=== PATIENT | male | born 1990 | race Caucasian/White ===

== ENCOUNTER → 2017-10-20 | Outpatient (CLI) | payer OTHER, SELFPAY ==
[~2017-10-20] MED LIST: ALBU90OI61 INH; CYCL10 PO; DESV50 PO; HYDACE5 PO; HYDR1TAB94 PO; LEVSOD100 PO; LISI20 PO; OXYACE5T PO; PROP10 PO; TRAZ50 PO
[2017-10-20 12:56] LABS: Specimen Source URINE
[2017-10-21 11:08] LABS: Source Urine
== END ==
LOC: LAB 10:30
PROVIDERS: Physician Assistant
DX: N39.0 Urinary tract infection, site not specified (principal); R39.15 Urgency of urination
CPT/HCPCS: 87086; 87491; 87591

== ENCOUNTER → 2021-05-09 | Outpatient (CLI) | payer OTHER ==
[2021-05-11 15:23] LABS: CORONAVIRUS (COVID19) CSH-NRL Negative (Negative)
== END ==
LOC: LAB SHORT 19:18 → LAB 19:18
PROVIDERS: Physician Assistant Medical
DX: Z01.812 Encounter for preprocedural laboratory examination (principal); Z20.822 Contact with and (suspected) exposure to COVID-19
CPT/HCPCS: U0003

== ENCOUNTER → 2022-08-21 | Outpatient (CLI) | payer OTHER ==
[~2022-08-21] MED LIST changes: +CLON.5; +EUTHYROX50 MCG PO; +FLUOXETINE HCL60 MG PO; -LEVSOD100 PO
[2022-08-21 14:13] LABS: Influenza B, PCR NEGATIVE (NEGATIVE); Resp Syncytial Virus, PCR NEGATIVE (NEGATIVE); SARS-Cov-2 (COVID-19) PCR, MMC NEGATIVE (NEGATIVE)
[2022-08-21 14:15] LABS: Influenza A, PCR POSITIVE (NEGATIVE)
== END | disposition home or self-care (01) ==
LOC: LAB SHORT 13:15
PROVIDERS: Family Medicine
DX: R05.9 Cough, unspecified (principal); Z20.822 Contact with and (suspected) exposure to COVID-19
CPT/HCPCS: 0241U

== ENCOUNTER 2025-04-03 06:51 | Emergency (ER) | payer OTHER ==
[~2025-04-03] VITALS: Ht 180.3 cm; Wt 136.1 kg
[~2025-04-03 06:51] MED LIST changes: +NAPR500 PO; +Robaxin750 MG PO; +Tessalon200 MG PO
[2025-04-03 09:10] VITALS: BP 144/93
== END 2025-04-03 09:26 | disposition home or self-care (01) ==
LOC: ER 06:51
DX: M79.641 Pain in right hand (principal); M25.531 Pain in right wrist; I10 Essential (primary) hypertension; Z88.1 Allergy status to other antibiotic agents; Z79.890 Hormone replacement therapy; Z79.899 Other long term (current) drug therapy; Z59.89 Other problems related to housing and economic circumstances
CPT/HCPCS: 73130; 99283-25